=== PATIENT | male | born 1955 | race Caucasian/White ===

== ENCOUNTER → 2018-05-08 | Outpatient (CLI) | payer BC ==
[~2018-05-08] MED LIST: ALPRAZOLAM0.25 MG PO; ASPIRIN325 MG PO; ATORVASTATIN CA10 MG PO; ATORVASTATIN CA20 MG PO; CARAFATE1 GM PO; CARBIDOPA-LEVO1 EACH PO; FINASTERIDE5 MG PO; IOPAMIDOL 370 MG/ML 200 ML INFUS..BTL INJ ONE; Ibuprofen PO; LABETALOL HCL200 MG PO; LOSARTAN POTASS50 MG PO; METOPROLOL TART25 MG PO; MONTELUKAST SOD10 MG PO; NITROSTAT0.4 MG SL; SODIUM CHLORIDE 0.9% 100 ML ONE; ST. JOSEPH ASPI81 MG PO; TAMSULOSIN HCL0.4 MG PO
[2018-05-08 09:19] LABS: BLOOD UREA NITROGEN 12 mg/dL (7-26); BUN/CREATININE RATIO 13 (6-25); CREATININE, SERUM 0.92 mg/dL (0.72-1.25); EST GLOMERULAR FILTRATION RATE > 60 ML/MIN (60-)
--- NOTE | 2018-05-08 11:29 | Diagnostic Imaging Report ---
EXAM: CTA Chest WITH contrast. DATE: 05/08/2018 8:50 AM INDICATION: Dissection COMPARISON: 09/05/2016 CT TECHNIQUE: CT angiogram of the chest was obtained after the administration of IV contrast. Prospective gating was performed. Images reviewed in the axial, coronal, and sagittal planes. 3D reconstructions performed on off-line workstation. Pre and postcontrast imaging obtained. IV Contrast: 100 mL Isovue-370. Total DLP: 728 mGy*cm Est. Eff. Dose DLP x 0.015 x size factor mSv (CTDIvol has been reviewed and is below limits set by [facility]). FINDINGS: Lines and Tubes: None. Lower Neck: The visualized thyroid gland is grossly unremarkable with no suspicious or significant nodule identified. Heart and Great Vessels: The pulmonary artery measure 27 mm. No central pulmonary embolus or intracardiac filling defect identified. Coronary artery branching pattern unremarkable. No significant coronary artery vascular calcifications identified. Aortic Annulus: 28 mm. Sinus of Valsalva: 37 mm. Ascending Aorta at level of PA: 31 mm. Mid Arch: 26 mm. Proximal Descendin mm. Mid Descendin mm. Distal Descendin mm. Other: Endovascular stent of the aorta beginning in the mid arch extending through the descending thoracic aorta to just above the hiatus present. While stent covers the left common carotid and left brachycephalic arteries, normal contrast opacification of great vessels present with normal branching pattern of aortic arch. No endoleak identified. Apparent coils in the region of the proximal left subclavian artery with associated spray artifact present. Lymph Nodes: No suspicious adenopathy. Lungs: No pneumothorax or pleural effusion. Trachea and central bronchi are unremarkable. Upper abdomen: No acute findings. Bones and Soft Tissues: No acute findings. IMPRESSION: 1. Endovascular aortic stent arising from mid arch through the descending thoracic aorta. No change in size or appearance. No residual/recurrent aneurysm or dissection identified. Signed by: Dr. Bethel Roblero MD on 05/08/2018 11:26 AM
== END ==
LOC: CT 08:42
PROVIDERS: ATTEND Internal Medicine
DX: Z98.890 Other specified postprocedural states (principal)
CPT/HCPCS: 36415; 71275; 82565; 84520; J7050; Q9967